=== PATIENT | female | born 1985 | race Asian ===

== ENCOUNTER 2017-06-23 00:08 | Inpatient (IN) | payer SELFPAY ==
[~2017-06-23] VITALS: Ht 160 cm; Wt 71.5 kg
[~2017-06-23 00:08] MED LIST: OXYTOCIN 10 UNITS/ML VIAL IM SCH
[2017-06-23] MEDS ORDERED: OXYTOCIN 20 UNITS in LACTATED RINGERS 1,000 ML IV SCH (00:51)
[2017-06-23] MEDS ORDERED: METHYLERGONOVINE 0.2 MG/ML AMP IM PRN ×3 (00:55→13:30)
[2017-06-23] MEDS ORDERED: IBUPROFEN 800 MG TAB PO PRN (00:55)
[2017-06-23] MEDS ORDERED: CARBOPROST 250 MCG/ML AMP IM PRN (00:55)
[2017-06-23] MEDS ORDERED: NALBUPHINE 10 MG/ML AMP IVP PRN (00:55)
[2017-06-23] MEDS ORDERED: PROMETHAZINE 25 MG/ML VIAL IVP PRN (00:55)
[2017-06-23 01:17] LABS: BASOPHILS # (AUTO) 0.1 K/uL (0.00-0.22); BASOPHILS % (AUTO) 0.8 % (0.0-2.0); EOSINOPHILS # (AUTO) 0.1 K/uL (0-0.4); EOSINOPHILS % (AUTO) 0.6 % (0.0-4.0); HEMATOCRIT 37.1 % (36-48); HEMOGLOBIN 12.1 g/dL (12.0-16.0); LYMPHOCYTES # (AUTO) 2.2 K/uL (2.5-16.5); LYMPHOCYTES % (AUTO) 23.7 % (20.5-51.1); MEAN CORPUSCULAR HEMOGLOBIN 29 pg (27-31); MEAN CORPUSCULAR HGB CONC 33 g/dL (33-37); MEAN CORPUSCULAR VOLUME 88 fL (80-94); MONOCYTES # (AUTO) 0.4 K/uL (0.8-1.0); MONOCYTES % (AUTO) 4.6 % (1.7-9.3); NEUTROPHILS # (AUTO) 6.6 K/uL (1.8-7.7); NEUTROPHILS % (AUTO) 70.3 % (42.2-75.2); PLATELET COUNT (AUTO) 189 K/uL (140-450); WHITE BLOOD COUNT (AUTO) 9.4 K/uL (4.8-10.8)
[2017-06-23 01:19] LABS: APPEARANCE,URINE CLEAR (CLEAR); BILIRUBIN,URINE NEGATIVE (NEGATIVE); BLOOD, URINE TRACE-L (NEGATIVE); COLOR,URINE YELLOW (YELLOW); LEUKOCYTE ESTERASE ,URINE NEGATIVE (NEGATIVE); NITRITE, URINE NEGATIVE (NEGATIVE); UGLUCOSE NEGATIVE (NEGATIVE)
[2017-06-23] MEDS: LACTATED RINGERS 1,000 ML IV SCH ×4 (01:30→11:28)
[2017-06-23 01:34] LABS: ALBUMIN 2.9 g/dL (3.4-5.0); ANION GAP 11.8 (8-16); CARBON DIOXIDE 24.9 mmol/L (21-32); CREATININE 0.5 mg/dL (0.6-1.3); POTASSIUM 3.7 mmol/L (3.5-5.1); TOTAL BILIRUBIN 0.2 mg/dL (0.0-1.0)
[2017-06-23 02:05] LABS: RED CELL DISTRIBUTION WIDTH 22.3 % (11.6-13.7)
[2017-06-23 02:21] LABS: RBC,URINE 0-5 (RARE) /HPF (0-5); WBC,URINE 0-5 (RARE) /HPF (0-5)
[2017-06-23] MEDS ORDERED: ROPIVACAINE 0.2%/NS PREMIX 250 ML EPI ONE (02:52)
[2017-06-23] MEDS ORDERED: OXYTOCIN 20 UNITS/LR PREMIX 1,000 ML IV ONE (04:42)
[2017-06-23 09:01] VITALS: BP 108/63
[2017-06-23] MEDS ORDERED: INFLUENZA VIRUS VACCINE QUAD 0.5 ML SYR IMVAC SCH (09:05)
--- NOTE | 2017-06-23 10:05 | NUR ---
PATIENT HAS BEEN SCREENED AND CATEGORIZED LOW NUTRITION RISK. PATIENT WILL BE SEEN WITHIN 7 DAYS OF ADMISSION. 06/29/[address]
[2017-06-23] MEDS ORDERED: OXYTOCIN 10 UNITS/ML VIAL IM PRN ×2 (12:25→13:30)
[2017-06-23] MEDS ORDERED: MEASLES, MUMPS, AND RUBELLA 1 VIAL SQVAC PRN ×2 (12:25→13:30)
[2017-06-23] MEDS ORDERED: TEMAZEPAM 15 MG CAP PO PRN ×2 (12:25→13:30)
[2017-06-23] MEDS ORDERED: BENZOCAINE/MENTHOL 20%-0.5% 60 GM CAN TP PRN ×2 (12:25→13:30)
[2017-06-23] MEDS ORDERED: OXYTOCIN 10 UNITS/ML VIAL ONE (13:15)
[2017-06-23] MEDS ORDERED: HYDROcodone/APAP 5/325 MG 1 TAB TAB PO PRN (13:30)
[2017-06-23] MEDS ORDERED: SODIUM PHOSPHATE 118 ML ENEM RC PRN (13:30)
[2017-06-23] MEDS ORDERED: oxyCODONE/APAP 5/325 MG 1 TAB TAB PO PRN (13:30)
[2017-06-23] MEDS ORDERED: METHYLERGONOVINE 0.2 MG TAB PO PRN (13:30)
[2017-06-23] MEDS ORDERED: BISACODYL 10 MG SUPP RC PRN (13:30)
[2017-06-23] MEDS: oxyCODONE/APAP 5/325 MG 1 TAB TAB PO PRN (16:19)
[2017-06-23] MEDS ORDERED: DOCUSATE SOD/SENNA 50/8.6 MG 1 TAB PO SCH ×2 (21:00)
[2017-06-23] MEDS: HYDROcodone/APAP 5/325 MG 1 TAB TAB PO PRN (21:03)
[2017-06-24] MEDS: oxyCODONE/APAP 5/325 MG 1 TAB TAB PO PRN (00:56)
[2017-06-24] MEDS: HYDROcodone/APAP 5/325 MG 1 TAB TAB PO PRN (04:33)
[2017-06-24 06:10] LABS: HEMATOCRIT 30.8 % (36-48); HEMOGLOBIN 10.2 g/dL (12.0-16.0)
[2017-06-24 06:51] LABS: RAPID PLASMA REAGIN NON-REACTIVE (Non Reactiv)
[2017-06-24] MEDS: IBUPROFEN 800 MG TAB PO PRN ×2 (09:34→16:55)
[2017-06-25] MEDS ORDERED: IBUP-2213 PO (11:21)
== END 2017-06-25 17:25 | disposition home or self-care (01) | DRG 775 ==
LOC: MLD 00:08 → MFCC 16:10
PROVIDERS: ADMIT Obstetrics & Gynecology; ATTEND Obstetrics & Gynecology
PROC: 10D07Z6 Extraction of Products of Conception, Vacuum, Via Natural or Artificial Opening (ICD-10-PCS; principal; 2017-06-23)
PROC: 0W8NXZZ Division of Female Perineum, External Approach (ICD-10-PCS; 2017-06-23)
PROC: 10907ZC Drainage of Amniotic Fluid, Therapeutic from Products of Conception, Via Natural or Artificial Opening (ICD-10-PCS; 2017-06-23)
PROC: 00HU33Z Insertion of Infusion Device into Spinal Canal, Percutaneous Approach (ICD-10-PCS; 2017-06-23)
PROC: 3E0R3BZ Introduction of Anesthetic Agent into Spinal Canal, Percutaneous Approach (ICD-10-PCS; 2017-06-23)
PROC: 3E0234Z Introduction of Serum, Toxoid and Vaccine into Muscle, Percutaneous Approach (ICD-10-PCS; 2017-06-24)
PROC: 3E0234Z Introduction of Serum, Toxoid and Vaccine into Muscle, Percutaneous Approach (ICD-10-PCS; 2017-06-24)
DX: O89.4 Spinal and epidural anesthesia-induced headache during the puerperium (principal); Z23 Encounter for immunization; Z37.0 Single live birth; Z3A.39 39 weeks gestation of pregnancy
CPT/HCPCS: 36415; 51702; 59409; 80053; 81001; 85018; 85025; 86592; 86886; 86900; 86901; 90658; 90715; J2590; J2795; J7120